=== PATIENT | female | born 1995 | race American Indian/Alaskan Native ===

== ENCOUNTER 2018-03-25 11:42 | Emergency (ER) | payer OTHER, MEDICAID ==
[2018-03-25 13:34] LABS: Bacteria,Urine 1+ /HPF (Negative); Bilirubin,Urine NEG (Negative); Blood,Urine NEG (Negative); Color,Urine Yellow (Yellow); Mucus,Urine 1+ /HPF; Urobilinogen,Urine < 2.0 mg/dL (<2.0)
[2018-03-25 14:04] LABS: Basophils % (Auto) 0.6 % (0.0-1.8); Eosinophils % (Auto) 0.5 % (0.0-4.3); Hematocrit 36.9 % (30.3-42.9); Hemoglobin 12.4 gm/dl (10.1-14.3); Lymphocytes # (Auto) 1.1 K/mm3 (1.2-5.4); Lymphocytes % (Auto) 25.7 % (13.4-35.0); Mean Corpuscular HGB Conc 34 % (30-34); Mean Corpuscular Hemoglobin 32 pg (28-32); Mean Corpuscular Volume 95 fl (79-97); Monocytes # (Auto) 0.4 K/mm3 (0.0-0.8); Monocytes % (Auto) 10.3 % (0.0-7.3); Platelet Count 213 K/mm3 (140-440); Red Cell Distribution Width 12.7 % (13.2-15.2)
[2018-03-25 14:14] LABS: INR 0.86 (0.87-1.13); Partial Thromboplastin Time 29.9 Sec. (24.2-36.6)
[2018-03-25 14:27] LABS: Alanine Aminotransferase 63 units/L (7-56); Albumin 3.4 g/dL (3.9-5); BUN/Creatinine Ratio 20; Blood Urea Nitrogen 10 mg/dL (7-17); Calcium 9.3 mg/dL (8.4-10.2); Hemolysis Index 8
--- NOTE | 2018-03-25 17:12 | Emergency Department Report ---
ED Shortness of Breath HPI - General Chief Complaint: Dyspnea/Respdistress Stated Complaint: SOB/BACK/HIP PAIN Time Seen by Provider: 03/25/18 16:53 Source: patient Mode of arrival: Ambulatory Limitations: No Limitations - History of Present Illness Initial Comments: Yesenia is a pleasant 22 yo patient who is 36 weeks who presents with dyspnea since this morning. Shortness of breath is intermittent. Denies leg pain. Denies chest pain. She has had moderately severe right back pain radiating to right hip for past 3 days. Pain is sharp worse with ambulation. Mild intermittent leg edema. She has [place] Ang[place] contractions which are more prominent over the last week. She was seen in L&D earlier today. Asked to return to ER for abnormal liver enzymes and concern for pre- eclampsia. Hx of lupus. Takes plaquenil and ASA Followed by [facility]. Followed MFM specialist in [place]. Complaint: shortness of breath -: Gradual, This morning Severity: mild - Related Data Allergies Allergy/AdvReac Type Severity Reaction Status Date / Time No Known Allergies Allergy Verified 03/25/18 11:56 ED Review of Systems ROS: Stated complaint: SOB/BACK/HIP PAIN Other details as noted in HPI Comment: All other systems reviewed and negative Constitutional: denies: fever, malaise Respiratory: denies: cough Cardiovascular: denies: chest pain Gastrointestinal: denies: abdominal pain, nausea, vomiting Musculoskeletal: back pain ED Past Medical Hx - Past Medical History Previous Medical History?: Yes Additional medical history: lupus - Social History Smoking Status: Never Smoker Substance Use Type: None ED Physical Exam - General Limitations: No Limitations General appearance: alert, in no apparent distress - Head Head exam: Present: atraumatic, normocephalic - Eye Eye exam: Present: normal appearance - ENT ENT exam: Present: mucous membranes moist - Neck Neck exam: Present: normal inspection. Absent: tenderness, meningismus - Respiratory Respiratory exam: Present: normal lung sounds bilaterally. Absent: respiratory distress, wheezes, rales, rhonchi - Cardiovascular Cardiovascular Exam: Present: regular rate, normal rhythm, normal heart sounds. Absent: bradycardia, tachycardia, systolic murmur, diastolic murmur, rubs, gallop - GI/Abdominal GI/Abdominal exam: Present: soft, distended, normal bowel sounds. Absent: tenderness, guarding, rebound - Extremities Exam Extremities exam: Present: normal inspection - Back Exam Back exam: Present: normal inspection - Neurological Exam Neurological exam: Present: alert, oriented X3 - Psychiatric Psychiatric exam: Present: normal affect, normal mood - Skin Skin exam: Present: warm, dry, intact, normal color. Absent: rash ED Course Vital Signs 03/25/18 03/25/18 03/25/18 11:52 16:57 17:00 Temperature 98.8 F Pulse Rate 113 H 100 H 113 H Respiratory 20 24 15 Rate Blood Pressure 114/68 116/61 O2 Sat by Pulse 99 Oximetry 03/25/18 03/25/18 03/25/18 17:15 17:30 17:47 Temperature Pulse Rate 98 H 97 H 94 H Respiratory 11 L 18 17 Rate Blood Pressure 99/68 102/61 102/61 O2 Sat by Pulse 100 Oximetry 03/25/18 03/25/18 03/25/18 18:00 18:15 18:30 Temperature Pulse Rate 89 92 H 89 Respiratory 17 16 13 Rate Blood Pressure 93/50 97/52 90/54 O2 Sat by Pulse Oximetry 03/25/18 03/25/18 18:45 19:01 Temperature Pulse Rate 89 80 Respiratory 14 22 Rate Blood Pressure 95/52 115/69 O2 Sat by Pulse Oximetry ED Medical Decision Making - Lab Data Result diagrams: 03/25/18 13:44 03/25/18 13:44 Laboratory Tests 03/25/18 03/25/18 03/25/18 12:59 13:44 13:44 WBC 4.1 L RBC 3.90 Hgb 12.4 Hct 36.9 MCV 95 MCH 32 MCHC 34 RDW 12.7 L Plt Count 213 Lymph % (Auto) 25.7 Banks % (Auto) 10.3 H Eos % (Auto) 0.5 Baso % (Auto) 0.6 Lymph # 1.1 L [place] # 0.4 Eos # 0.0 Baso # 0.0 Seg Neutrophils % 62.9 Seg Neutrophils # 2.6 PT INR APTT Sodium Potassium Chloride Carbon Dioxide Anion Gap BUN Creatinine Estimated GFR BUN/Creatinine Ratio Glucose Calcium Total Bilirubin AST ALT Alkaline Phosphatase Total Protein Albumin Albumin/Globulin Ratio HCG, Qual Positive Urine Color Yellow Urine Turbidity Slightly-cloudy Urine pH 6.0 Ur Specific [place] 1.025 Urine Protein 30 mg/dl Urine Glucose (UA) Neg Urine Ketones Neg Urine Blood Neg Urine Nitrite Neg Urine Bilirubin Neg Urine Urobilinogen < 2.0 Ur Leukocyte Esterase Tr Urine WBC (Auto) 6.0 Urine RBC (Auto) 4.0 U Epithel Cells (Auto) 4.0 Urine Bacteria (Auto) 1+ Urine Mucus 1+ 03/25/18 03/25/18 13:44 13:44 WBC RBC Hgb Hct MCV MCH MCHC RDW Plt Count Lymph % (Auto) [place] % (Auto) Eos % (Auto) Baso % (Auto) Lymph # [place] # Eos # Baso # Seg Neutrophils % Seg Neutrophils # PT 12.2 INR 0.86 L APTT 29.9 Sodium 138 Potassium 4.3 Chloride 105.9 Carbon Dioxide 20 L Anion Gap 16 BUN 10 Creatinine 0.5 L Estimated GFR > 60 BUN/Creatinine Ratio 20 Glucose 94 Calcium 9.3 Total Bilirubin 0.30 AST 67 H ALT 63 H Alkaline Phosphatase 180 H Total Protein 7.4 Albumin 3.4 L Albumin/Globulin Ratio 0.9 HCG, Qual Urine Color Urine Turbidity Urine pH Ur Specific [place] Urine Protein Urine Glucose (UA) Urine Ketones Urine Blood Urine Nitrite Urine Bilirubin Urine Urobilinogen Ur Leukocyte Esterase Urine WBC (Auto) Urine RBC (Auto) U Epithel Cells (Auto) Urine Bacteria (Auto) Urine Mucus - EKG Data EKG shows normal: sinus rhythm, axis, intervals, QRS complexes, ST-T waves Rate: normal - EKG Data Interpretation: normal EKG - Medical Decision Making 1. shortness of breath HR 88 bpm on exam, low likelihood of PE with normal HR and normal pulse ox. ?cardiomyopathy ?preeclampsia HR 80 bpm on EKG, she is able to lay on her side with comfort 2. right back pain no indication of pyelonephritis, possible muscular strain, labor ruled out in L&D 3. elevated liver enzymes, proteinuria, dyspnea concern for pre-eclampsia, patient is a higher risk for preeclampsia with hx of SLE, only ankle edema noted which patient states is much better than normal I highly appreciate the consultation with Dr. Livingston who evaluated Mrs. Soto this morning. She wanted clearance of dyspnea. Dr. 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 With presention, Dr. Langley is not concerned from preclampsia. She attributed abnormal LFTs to plaquenil use. Patient given return precautions. DC'd home Critical Care Time: Yes Critical care time in (mins) excluding proc time.: 40 Critical care attestation.: If time is entered above; I have spent that time in minutes in the direct care of this critically ill patient, excluding procedure time. 40 minutes of critical care time excluding procedures were used in the care of the patient. Patient is high risk for complication relating to . She required multiple assessments and interventions. I kept family informed. ED Disposition Clinical Impression: , Dyspnea, Abnormal liver function tests, Back pain Disposition: TO HOME OR SELFCARE Is pt being admited?: No Does the pt Need Aspirin: No Condition: Stable Instructions: Dyspnea (ED) Referrals: LELA LIVINGSTON [Staff Physician] - 3-5 Days Forms: Accompanied Note Time of Disposition: 19:38
[2018-03-25 19:04] VITALS: BP 115/69
[2018-03-25] MEDS ORDERED: TYLENOL PO ONE (19:24)
--- NOTE | 2018-03-25 19:31 | XRay Report ---
FINAL REPORT EXAM: XR CHEST 1V AP HISTORY: dyspnea TECHNIQUE: AP portable view of the chest PRIORS: None. FINDINGS: Lines, tubes, and devices: N/A Lungs and pleura: Trachea is normal in position. Lungs are clear of infiltrate, pleural effusion, vascular congestion, or pneumothorax. Cardiomediastinal silhouette: Cardiac and mediastinal silhouettes are unremarkable. Other: Bony structures are intact. IMPRESSION: No acute cardiopulmonary process seen.
== END 2018-03-25 20:13 | disposition home or self-care (01) ==
LOC: ED 11:42
DX: O26.893 Other specified pregnancy related conditions, third trimester (principal); R06.00 Dyspnea, unspecified; R06.02 Shortness of breath; M54.9 Dorsalgia, unspecified; O26.613 Liver and biliary tract disorders in pregnancy, third trimester; Z3A.36 36 weeks gestation of pregnancy
CPT/HCPCS: 36415; 71045; 80053; 81001; 82239; 83880; 84550; 84703; 85025; 85379; 85610; 85730; 93005; 93010

== ENCOUNTER 2018-03-25 15:03 | Outpatient (CLI) | payer OTHER, MEDICAID ==
[2018-03-25] MEDS ORDERED: LACTATED RINGERS 500 ML IV ONE (15:09)
[2018-03-25 15:56] VITALS: BP 106/57
== END 2018-03-25 16:45 | disposition home or self-care (01) ==
LOC: TRG 15:03
PROVIDERS: ATTEND Obstetrics & Gynecology
DX: O47.03 False labor before 37 completed weeks of gestation, third trimester (principal); Z3A.36 36 weeks gestation of pregnancy
CPT/HCPCS: 59025